=== PATIENT | male | born 1975 | race Caucasian/White ===

== ENCOUNTER 2020-09-02 06:20 | Emergency (ER) | payer SELFPAY ==
[~2020-09-02] VITALS: Ht 180.3 cm; Wt 115.9 kg
[2020-09-02 06:26] VITALS: TEMP 97.5
[2020-09-02] MEDS ORDERED: PERCOCET 325 MG1 TA2 PO (06:56)
[2020-09-02] MEDS ORDERED: CLEOCIN HCL300 MG PO (06:56)
[2020-09-02 07:16] VITALS: BP 139/89; PULSE 86
== END 2020-09-02 07:19 | disposition home or self-care (01) ==
LOC: COL.ER 06:20
DX: K04.7 Periapical abscess without sinus (principal)
CPT/HCPCS: J0696

== ENCOUNTER 2021-07-20 05:09 | Emergency (ER) | payer SELFPAY ==
[~2021-07-20] VITALS: Ht 182.9 cm; Wt 115.9 kg
[~2021-07-20 05:09] MED LIST: CLEOCIN HCL300 MG PO; PERCOCET 325 MG1 TA2 PO
[2021-07-20 05:15] VITALS: BP 148/94; TEMP 97.6
[2021-07-20] MEDS ORDERED: PEN-VEE K500 MG PO (05:56)
[2021-07-20 06:05] VITALS: PULSE 75
== END 2021-07-20 06:05 | disposition home or self-care (01) ==
LOC: COL.ER 05:09
DX: K02.9 Dental caries, unspecified (principal); Z28.310 Unvaccinated for COVID-19

== ENCOUNTER 2023-12-06 18:22 | Emergency (ER) | payer SELFPAY ==
[~2023-12-06] VITALS: Ht 180.3 cm; Wt 113.6 kg
[~2023-12-06 18:22] MED LIST changes: +AMOXICILLIN 50500 MG PO; +NORCO 325 MG-51 TAB PO; +PEN-VEE K500 MG PO
[2023-12-06 18:31] VITALS: TEMP 97.7
[2023-12-06] MEDS ORDERED: AMOXICILLIN 50500 MG PO (18:45)
[2023-12-06] MEDS ORDERED: Amoxicillin 500 MG CAP PO ONE (18:45)
[2023-12-06] MEDS ORDERED: dexAMETHasone 10 MG/ML VIAL IM ONE (18:45)
[2023-12-06 19:00] VITALS: BP 168/70; PULSE 69
== END 2023-12-06 19:00 | disposition home or self-care (01) ==
LOC: COL.ER 18:22
DX: K04.7 Periapical abscess without sinus (principal)
CPT/HCPCS: J1100